=== PATIENT | female | born 1985 | race Two or more races ===

== ENCOUNTER 2025-04-09 12:23 | Emergency (ER) | payer OTHER, SELFPAY ==
--- OUTSIDE RECORDS SUMMARY | 2025-04-04 17:29 | XMS_ITS | Encounter Summary ---
Author Organization [facility] Address [address] [place] [id number] Phone Care Team Providers [employer] Name Role Phone Marek Siddiqui MD Primary Care Provi brenden Reason for Visit * Reason Comments Vaginal Bleeding Encounter Details Date Type Department Care Team (Late st Contact Info) Description 04/04/2025 5:29 PM EDT - 04/04/2025 10:01 PM EDT Emergency [facility] Emergency Dept [address] [place] [place] [address] Michael Hughes MD [address] [place] [id number] Vaginal bleeding in (Primary Dx); Subchorionic hematoma; Elevated blood pressure affecting in first trimester, antepartum Discharge Disposition: Home or Self Care Social History Tobacco Use Types Packs/Day Years Used Date Smoking Tobacco: Never Smokeless Tobacco: Never Tobacco Cessation:Counseling Given: Not Answered Alcohol Use Standard Drinks/Week Comments Never 0 (1 standard drink = 0.6 oz pur e alcohol) AUDIT-C Answer Date Recorded Q1: How often do you have a drink containing alcohol? Never 04/04/2025 Q2: How many drinks containi ng alcohol do you have on a typical day when you are drinking? Patient does not drink Q3: How often do you have si x or more drinks on one occasion? Never 04/04/2025 Estimated Date of Delivery Comme nts Yes 10/07/2025 Sex and Gender Information Value Date Recorded Sex Assigned at Female 04/04/2025 6:02 PM EDT Legal Sex Female 9:59 AM EST Gender Identity Not on file Sexual Orientation Not on file documented as of this encounter Last Filed Vital Signs Vital Sign Reading Time Taken Comments Blood Pressure 140/74 04/04/2025 8:18 PM EDT Pulse 88 04/04/2025 8:18 PM EDT Temperature 36.7 C (98 F) 04/04/2025 8:18 PM EDT Respiratory Rate 18 04/04/2025 8:18 PM EDT Oxygen Saturation 98% 04/04/2025 8:18 PM EDT Inhaled Oxygen Concentration - - Weight 116.1 kg (255 lb 14.4 oz) 04/04/2025 5:42 PM EDT Height 162.6 cm (5' 4 ) 04/04/2025 5:42 PM EDT Body Mass Index 43.93 04/04/2025 5:42 PM EDT documented in this encounter Functional Status * AUDIT-C Score Answer Date of Assessment Author 0 04/04/2025 5:46 PM EDT Brock Drake RN * Question Answer Date of Assessment Author Q1: How often do you have a drink containing alcohol? Never 04/04/2025 5:46 PM EDT Paulette Drake RN Q2: How many drinks containing alcohol do you have on a typical day when you are drinking? Patient does not drink 04/04/2025 5:46 PM EDT Paulette Drake RN Q3: How often do you have six or more drinks on one occasion? Never 04/04/2025 5:46 PM EDT Paulette Drake RN documented as of this encounter Discharge Instructions * Discharge Instructions* Gladys Sherman PA-C - 04/04/2025 9:46 PM EDT Your US findings today reveal: There is an intrauterine gestation with BPD of 2.36 cm which corresponds 14 weeks 0 days. cardiac activity is present 169 BPM. The placenta is posterior. There is normal amniotic fluid volume. Tiny subchorionic fluid collection. There is a small amount of fluid in the cervix. Cervix measures 3.3 cm and is closed. Neither ovary identified. Please follow-up with your CLAIMS ADJUSTER as scheduled tomorrow morning regarding your vaginal bleeding as well as elevated blood pressure. Please seek immediate medical attention if you experience any worsening vaginal bleeding, abdominal pain, or other concerning related symptoms. * Attachments The following attachments cannot be sent through Care Everywhere. * : High Blood Pressure (MALAY) documented in this encounter Medications at Time of Discharge aspirin (KERON CHEWABLE) 81 mg Tablet, Chewable Take 81 mg by mouth in the morning. magnesium gluconate (MAGONATE) 27 mg (500 mg) Tablet Take 1 Tablet by mouth in the morning. metFORMIN (GLUCOPHAGE) 1,000 mg tabletIndication s:polycystic ovarian syndrome Take 1,000 mg by mouth in the morning and 1,000 mg in the evening. Take with meals. For: polycystic ovarian syndrome, a disease with cysts in the ovaries. vit-iron fumarate-fa (NEELAM ) 28 mg iron- 800 mcg Tablet Take 1 Tablet by mouth in the morning. documented as of this encounter ED Notes * Gladys Sherman PA-C - 04/04/2025 10:01 PM EDT HISTORY OF PRESENT ILLNESS Jovanna Pearson, a 39 y.o. female presents to the ED with a Chief Complaint of Vaginal Bleeding Subjective Patient is a 39-year-old female with past medical history of PCOS who presents the emergency department today with vaginal bleeding in . Patient is approximately 13 weeks 3 days . She had abdominal ultrasound performed at her OB earlier today that was reassuring. She follows with [facility]'s health in [place]. Denies any transvaginal ultrasound or speculum exam. Approximately 2 hours following her appointment, she noticed vaginal bleeding. Patient has noted spotting throughout her but states this is more than usual. Denies passing any clots. Denies any associated abdominal pain. Denies any urinary symptoms to include dysuria, hematuria, flank pain. Denies any abnormal vaginal discharge, concern for STDs. Patient has otherwise been in her normal state of health. There are no further complaints at this time. PAST MEDICAL HISTORY REVIEWED MEDICAL Patient has a past medical history of Ovarian cyst. SURGICAL Patient has a past surgical history that includes pt denies relevant surgical history. FAMILY Patient's family history is not on file. SOCIAL reports that she has never smoked. She has never used smokeless tobacco. She reports that she does not drink alcohol and does not use drugs. PROBLEM LIST Patient does not have a problem list on file. ALLERGIES Patient has no known allergies. HOME MEDICATIONS Patient's Home Meds Medication Sig aspirin (KERON CHEWABLE) 81 mg Tablet, Chewable Take 81 mg by mouth in the morning. magnesium gluconate (MAGONATE) 27 mg (500 mg) Tablet Take 1 Tablet by mouth in the morning. metFORMIN (GLUCOPHAGE) 1,000 mg tablet Take 1,000 mg by mouth in the morning and 1,000 mg in the evening. Take with meals. For: polycystic ovarian syndrome, a disease with cysts in the ovaries. vit-iron fumarate-fa (NEELAM ) 28 mg iron- 800 mcg Tablet Take 1 Tablet by mouth in the morning. REVIEW OF SYSTEMS Review of Systems Constitutional: Negative for chills and fever. Respiratory: Negative for cough and shortness of breath. Cardiovascular: Negative for chest pain. Gastrointestinal: Negative for abdominal pain, diarrhea, nausea and vomiting. Genitourinary: Positive for vaginal bleeding. Negative for dysuria. Musculoskeletal: Negative for back pain and neck pain. Neurological: Negative for headaches. Psychiatric/Behavioral: Negative for suicidal ideas. Objective PHYSICAL EXAM INITIAL VS BP: 149/78 (04/04/251741), Pulse: 96 (04/04/251741), Resp: 18 (04/04/251741), Temp: 98.2 ??F (04/04/251741), Temp src: Oral (04/04/251741), SpO2: 100 % (04/04/251741), Height: 5' 4 (162.6 cm) (04/04/251741), Weight: 116.1 kg (255 lb 14.4 oz) (04/04/251741), BMI (Calculated): 43.9 () No LMP recorded. Patient is . Physical Exam Constitutional: General: She is awake. She is not in acute distress. Appearance: Normal appearance. She is well-developed. She is obese. She is not ill-appearing or toxic-appearing. Comments: Patient is resting comfortably no acute distress. HENT: Head: Normocephalic and atraumatic. Right Ear: Tympanic membrane normal. Cardiovascular: Rate and Rhythm: Normal rate and regular rhythm. Pulses: Normal pulses. Heart sounds: Normal heart sounds. Pulmonary: Effort: Pulmonary effort is normal. Breath sounds: Normal breath sounds. No wheezing, rhonchi or rales. Abdominal: General: Abdomen is flat. Bowel sounds are normal. There is no distension. Palpations: Abdomen is soft. Tenderness: There is no abdominal tenderness. There is no right CVA tenderness, left CVA tenderness, guarding or rebound. Comments: Abdomen is soft, nondistended, nontender. No rebound, guarding, rigidity. Musculoskeletal: Cervical back: Normal range of motion and neck supple. Skin: General: Skin is warm and dry. Capillary Refill: Capillary refill takes less than 2 seconds. Neurological: General: No focal deficit present. Mental Status: She is alert and oriented to person, place, and time. MEDICAL DECISION MAKING AND PLAN OF CARE Medical Decision Making Patient is a 39-year-old female with past medical history of PCOS who presents the emergency department today with vaginal bleeding in . Initial vital signs reveal elevated blood pressure. Patient is asymptomatic at this time. She denies a history of hypertension. Suspect this may be in setting of anxiety related to vaginal bleeding in . Will monitor closely. On exam, there is no abdominal tenderness to palpation. No CVA tenderness bilaterally. Exam is otherwise unremarkable. Will obtain basic labs, urinalysis, hCG quant and ultrasound imaging. All labs and imaging were personally reviewed and interpreted by myself: CBC without leukocytosis to suggest infection CMP without electrolyte derangements or metabolic abnormalities Urinalysis with hematuria hCG quant 89, 785 which is consistent with gestational age. Patient is type a positive. RhoGAM is not warranted at this time. Ultrasound is reassuring and reveals a single IUP measuring 14 weeks 0 days with appropriate cardiac activity, 169 bpm. There is a tiny subchorionic fluid collection with small amount of fluid in the closed cervix suspect this is consistent with subchorionic hematoma. On reevaluation, patient is resting comfortably in no acute distress. She states the bleeding has eased off at this time. Blood pressure remains slightly elevated but is downtrending in the emergencydepartment today. Discussed importance of close OB follow-up for which the patient has an appointment scheduled for tomorrow morning. She will follow-up regarding ultrasound findings in the emergencydepartment today as well as elevated blood pressure. Strict return precautions were given if patient is to experience any worsening vaginal bleeding, associated abdominal pain, or other concerning related symptoms. Patient is safe and appropriate for discharge at this time. She is amenable with plan and expresses understanding. All questions were answered. Please note that portions of this document were created using [employer]or[employer] fence erector software. Effort has been made to ensure the accuracy of the chiller tender. Any obvious errors or omissions should be clarified with the author of this document. Problems Addressed: Elevated blood pressure affecting in first trimester, antepartum: complicated acute illness or injury Subchorionic hematoma: complicated acute illness or injury Vaginal bleeding in : complicated acute illness or injury Amount and/or Complexity of Data Reviewed Labs: ordered. Radiology: ordered. DIAGNOSTICS LAB Labs Reviewed COMPREHENSIVE METABOLIC PANEL - Abnormal Result Value Sodium 135 Potassium 4.2 Chloride 102 CO2 22 BUN 8 Glucose 104 (*) Creatinine 0.7 BUN/Creatinine Ratio 11.4 Anion Gap 11 Osmolality, Calculated 269 (*) Total Protein 6.7 Albumin 4.0 Globulin (Calc) 2.7 Albumin/Globulin Ratio 1.5 Bilirubin Total <0.2 (*) Alkaline Phosphatase 64 AST 15 ALT 17 Calcium 9.2 eGFR >90.0 URINALYSIS WITH MICROSCOPIC - Abnormal Color, UA Light Red (*) Clarity UA Clear Specific Nubieber, UA 1.005 Leukocyte Esterase, UA Negative Nitrite, UA Negative pH, UA 5.5 Protein, UA Negative Glucose, UA Negative Ketones, UA Negative Urobilinogen, UA Negative Bilirubin, UA Negative Blood, UA 3+ (*) WBC Urine 2 Squamous Epithelials 1 (*) Bacteria, UA Few (*) RBC, UA 90 (*) HCG QUANTITATIVE, BLOOD - Abnormal HCG QUANT, BLOOD 89,785.0 (*) Narrative: Interpretation Non- females: <5.0 Males: <5.0 Female hCG mIU/mL Weeks of Gestation (LMP) 5 - 100 4 Weeks 200 - 3,000 5 Weeks 10,000 - 80,000 6 Weeks 90,000 - 500,000 7-14 Weeks 5,000 - 80,000 15-26 Weeks 3,000 - 15,000 27-40 Weeks Elevated hCG levels may also be found in certain benign and malignant conditions other than . Reevaluation of hCG levels at 2 day intervals may be indicated if appears unlikely. CBC WITH AUTO DIFFERENTIAL - Abnormal WBC 9.71 RBC 4.53 Hemoglobin 12.1 Hematocrit 36.5 MCV 80.6 MCH 26.7 (*) MCHC 33.2 (*) RDW SD 49.9 (*) RDW 17.1 (*) Platelets 189 MPV 10.6 Neutrophils % Auto 69 Lymphocytes % Auto 20 Monocytes % Auto 9 Eosinophils % Auto 1 Basophils % Auto 0 Immature Grans % 0.3 Neutrophils Absolute Auto 6.71 Lymphocytes Absolute Auto 1.95 Monocytes Absolute Auto 0.84 (*) Eosinophils Absolute Auto 0.14 Basophils Absolute Auto 0.04 Absolute Immature Grans 0.03 CBC WITH DIFFERENTIAL Narrative: The following orders were created for panel order CBC with Differential. Procedure Abnormality Status --------- ------ CBC with Auto Differential[[id number]] Abnormal Final result Please view results for these tests on the individual orders. ABO AND RH TYPE ABO/RH Type A Positive Narrative: Performing Organization Information: CRMHLAB : [facility] - [address] [address] Director: CARLIN REYES RADIOLOGY US OB <14 WKS SINGLE GESTATION W TV Reason for Exam: vaginal bleed in early Radiologist Impression 1. Johnson intrauterine gestation at 14 weeks 0 days. By BPD,. cardiac activity is present. 2. Tiny subchorionic fluid collection. There is small amount of fluid in the closed cervix. PROCEDURES Procedures REEVALUATION DISCHARGE: The patient has been re-examined and is ready to be discharged. All diagnostic results have been reviewed and discussed with the patient. Care plan has been outlined and patient understands all current diagnoses, results and treatment plans. There are no new complaints, changes, or physical findings at this time. All questions have been addressed. All medications were reviewed with the patient. Pt vitals are stable. Patient and or family was given a list of signs and symptoms that if presented are reasons to return to the emergency department. No additional questions at discharge. Please refer to the AVS for further discharge/educational/follow up information provided to the patient. The ptis being discharged in stable condition. CASE DISCUSSED MEDICATIONS Medications - No data to display Discharge Medication List as of 04/04/2025 9:54 PM CONTINUE these medications which have NOT CHANGED Details aspirin (KERON CHEWABLE) 81 mg Tablet, Chewable Take 81 mg by mouth in the morning. magnesium gluconate (MAGONATE) 27 mg (500 mg) Tablet Take 1 Tablet by mouth in the morning. metFORMIN (GLUCOPHAGE) 1,000 mg tablet Take 1,000 mg by mouth in the morning and 1,000 mg in the evening. Take with meals. For: polycystic ovarian syndrome, a disease with cysts in the ovaries. vit-iron fumarate-fa (NEELAM ) 28 mg iron- 800 mcg Tablet Take 1 Tablet by mouth in the morning. LAST VITAL SIGNS Vitals: 04/04/25174104/04/252017 BP: 149/78 140/74 BP Location: right arm left arm Patient Position: Supine Sitting Pulse: 96 88 Resp: 18 18 Temp: 98.2 ??F 98 ??F TempSrc: Oral Oral SpO2: 100% 98% Weight: 116.1 kg (255 lb 14.4 oz) Height: 5' 4 (1.626 m) CLINICAL IMPRESSION Final diagnoses: [O46.90] Vaginal bleeding in (Primary) [O41.8X90, O46.8X9] Subchorionic hematoma [O16.1] Elevated blood pressure affecting in first trimester, antepartum DISPOSITION, EDUCATION AND MEDICATION RECONCILIATION Medications reconciled. See after visit summary for patient education on discharged patients. Cosigned by Michael Hughes MD at 04/05/2025 3:18 AM EDT * Jen Schaefer RN - 04/04/2025 8:32 PM EDT Lab called to notify this RN of a correction to the color on the U/A. Color being corrected to light red from light yellow. * Jen Schaefer RN - 04/04/2025 8:01 PM EDT This RN went to pts room to obtain VS & pain re-assessment; pt still in U/S. * Jen Schaefer RN - 04/04/2025 7:56 PM EDT Pt in U/S at time pain re-assessment due. To be completed when pt returns to room from U/S. * Paulette Drake RN - 04/04/2025 5:43 PM EDT Stated went to the OB and had abdominal US today with a normal US with HR; denies any vaginal examine at todays visit; stated that she has had some heavier than normal bleeding that started about a hour ago no abdominal cramping or back pain; patient has panty liner present with some dark bleeding noted. documented in this encounter Plan of Treatment Not on file documented as of this encounter Procedures Procedure Name Priority Date/Time Associated Diagnosis Comments US OB <14 WKS SINGLE GESTATION W TV STAT 04/04/2025 8:26 PM EDT URINALYSIS WITH MICROSCOPIC STAT 04/04/2025 7:02 PM EDT CBC WITH AUTO DIFFERENTIAL STAT 04/04/2025 6:04 PM EDT ABO AND RH TYPE STAT 04/04/2025 6:04 PM EDT CBC WITH DIFFERENTIAL STAT 04/04/2025 6:04 PM EDT HCG QUANTITATIVE, BLOOD ROUTINE 04/04/2025 6:04 PM EDT COMPREHENSIVE METABOLIC PANEL STAT 04/04/2025 6:04 PM EDT documented in this encounter Results * US OB <14 WKS SINGLE GESTATION W TV Reason for Exam: vaginal bleed in early (04/04/2025 8:26 PM EDT) Anatomical Region Laterality Modality Pelvis Ultrasound 04/04/2025 8:46 PM EDT Impressions 04/04/2025 8:50 PM EDT 1. Johnson intrauterine gestation at 14 weeks 0 days. By BPD,. cardiac activity is present. 2. Tiny subchorionic fluid collection. There is small amount of fluid in the closed cervix. Narrative 04/04/2025 8:50 PM EDT US OB <14 WKS SINGLE GESTATION W TV HISTORY: vaginal bleed in early . COMPARISON: None. TECHNIQUE: Sonographic images of the pelvis were obtained transabdominally and endovaginally by a district fire management officer. Color and spectral Doppler of the ovaries was performed. FINDINGS: There is no intrauterine gestation with BPD of 2.36 cm which corresponds 14 weeks 0 days.. cardiac activity is present 169 BPM. The placenta is posterior. There is normal amniotic fluid volume. Tiny subchorionic fluid collection. There is a small amount of fluid in the cervix. Cervix measures 3.3 cm and is closed.. Neither ovary identified. Procedure Note Bola Gupta MD - 04/04/2025 US OB <14 WKS SINGLE GESTATION W TV HISTORY: vaginal bleed in early . COMPARISON: None. TECHNIQUE: Sonographic images of the pelvis were obtainedtransabdominally and endovaginally by a district fire management officer. Color and spectral Doppler of the ovaries was performed. FINDINGS: There is no intrauterine gestation with BPD of 2.36 cm whichcorresponds 14 weeks 0 days.. cardiac activity is present 169 BPM. The placenta isposterior. There is normal amniotic fluid volume. Tiny subchorionic fluid collection. There is a small amount of fluid in the cervix. Cervix measures 3.3 cm andis closed.. Neither ovary identified. IMPRESSION 1. Johnson intrauterine gestation at 14 weeks 0 days. By BPD,. Fetalcardiac activity is present. 2. Tiny subchorionic fluid collection. There is small amount of fluid inthe closed cervix. us Gladys Sherman PA-C US ORDERABLES Final Resu lt * (ABNORMAL) Urinalysis with Microscopic - Clean Catch (04/04/2025 7:02 PM EDT) Color, UA Light Red(A) Light Yellow, Yellow, Dark Yellow 04/04/2025 8:32 PM EDT [facility] Comment:This is a corrected result. Previous result was Light Yellow on 04/04/2025 at 1922 EDT Clarity UA Clear Clear 04/04/2025 8:32 PM EDT [facility] Specific Nubieber, UA 1.005 1.005 - 1.030 04/04/2025 8:32 PM EDT [facility] Leukocyte Esterase, UA Negative Negative Mohan/uL 04/04/2025 8:32 PM EDT [facility] Nitrite, UA Negative Negative 04/04/2025 8:32 PM EDT [facility] pH, UA 5.5 5.0 - 9.0 04/04/2025 8:32 PM EDT [facility] Protein, UA Negative Negative mg/dL 04/04/2025 8:32 PM EDT [facility] Glucose, UA Negative Negative, 500 mg/dL mg/dL 04/04/2025 8:32 PM EDT [facility] Ketones, UA Negative Negative mg/dL 04/04/2025 8:32 PM EDT [facility] Urobilinogen, UA Negative Negative mg/dL 04/04/2025 8:32 PM EDT [facility] Bilirubin, UA Negative Negative, >10.0 mg/dL mg/dL 04/04/2025 8:32 PM EDT [facility] Blood, UA 3+(A) Negative 04/04/2025 8:32 PM EDT [facility] WBC Urine 2 0 - 5 /HPF 04/04/2025 8:32 PM EDT [facility] Squamous Epithelials 1(H) None /HPF 04/04/2025 8:32 PM EDT [facility] Bacteria, UA Few(A) (none) 04/04/2025 8:32 PM EDT [facility] RBC, UA 90(H) 0 - 2 /HPF 04/04/2025 8:32 PM EDT [facility] Urine URINE SPECIMEN OBTAINED BY CLEAN CATCH PROCEDURE / Unknown Collection / Unknown 04/04/2025 7:02 PM EDT 04/04/2025 7:06 PM EDT Gladys Sherman PA-C URINE ORDERABLES Edited Re sult - Final [facility] CLIA [id number] [facility] [place] [address] * (ABNORMAL) CBC with Auto Differential (04/04/2025 6:04 PM EDT) WBC 9.71 3.60 - 11.10 x10E3/uL 04/04/2025 6:12 PM EDT [facility] RBC 4.53 3.69 - 4.88 x10E6/uL 04/04/2025 6:12 PM EDT [facility] Hemoglobin 12.1 11.4 - 14.4 g/dL 04/04/2025 6:12 PM EDT [facility] Hematocrit 36.5 33.3 - 41.4 % 04/04/2025 6:12 PM EDT [facility] MCV 80.6 79.3 - 94.8 fL 04/04/2025 6:12 PM EDT [facility] MCH 26.7(L) 26.8 - 33.2 pg 04/04/2025 6:12 PM EDT [facility] MCHC 33.2(L) 33.5 - 35.5 g/dL 04/04/2025 6:12 PM EDT [facility] RDW SD 49.9(H) 36.4 - 46.3 fL 04/04/2025 6:12 PM EDT [facility] RDW 17.1(H) 12.0 - 15.1 % 04/04/2025 6:12 PM EDT [facility] Platelets 189 165 - 353 x10E3/uL 04/04/2025 6:12 PM EDT [facility] MPV 10.6 7.5 - 10.7 fL 04/04/2025 6:12 PM EDT [facility] Neutrophils % Auto 69 43 - 72 % 04/04/2025 6:12 PM EDT [facility] Lymphocytes % Auto 20 17 - 44 % 04/04/2025 6:12 PM EDT [facility] Monocytes % Auto 9 0 - 12 % 04/04/20 6:12 PM EDT [facility] Eosinophils % Auto 1 0 - 8 % 04/04/2025 6:12 PM EDT [facility] Basophils % Auto 0 0 - 1 % 04/04/20 6:12 PM EDT [facility] Immature Grans % 0.3 0.0 - 0.4 % 04/04/2025 6:12 PM EDT [facility] Neutrophils Absolute Auto 6.71 1.90 - 7.20 x10E3/uL 04/04/2025 6:12 PM EDT [facility] Lymphocytes Absolute Auto 1.95 1.10 - 2.70 x10E3/uL 04/04/2025 6:12 PM EDT [facility] Monocytes Absolute Auto 0.84(H) 0.00 - 0.80 x10E3/uL 04/04/2025 6:12 PM EDT [facility] Eosinophils Absolute Auto 0.14 0.00 - 0.50 x10E3/uL 04/04/2025 6:12 PM EDT [facility] Basophils Absolute Auto 0.04 0.00 - 0.10 x10E3/uL 04/04/2025 6:12 PM EDT [facility] Absolute Immature Grans 0.03 0.00 - 0.03 x10E3/uL 04/04/2025 6:12 PM EDT [facility] Blood VENOUS BLOOD SPECIMEN / Unknown Venipuncture / Unknown 04/04/2025 6:04 PM EDT 04/04/2025 6:[address] [facility] HEMATOLOGY ORDERABLES Florina l Result [facility] [place] [id number] [address] [place] [id number] * ABO and Rh Type (04/04/2025 6:04 PM EDT) ABO/RH Type A Positive 04/04/2025 6:31 PM EDT [facility] Blood VENOUS BLOOD SPECIMEN / Unknown Venipuncture / Unknown 04/04/2025 6:04 PM EDT 04/04/2025 6:08 PM EDT Narrative [facility] BLOOD BANK - 04/04/2025 6:31 PM EDT Performing Organization Information: CRMHLAB : [facility] - [address] [address] Director: CARLIN REYES [facility] BLOOD BANK ORDERABLES Florina l Result [facility]LOOD B[facility] CLIA [id number] [address] [place] [address], [place] [phone] [facility] CLIA [id number] [address] [place] [id number] * (ABNORMAL) HCG Quant, Blood (04/04/2025 6:04 PM EDT) HCG QUANT, BLOOD 89,785.0(H ) <5.0 mIU/mL 04/04/2025 6:46 PM EDT [facility] Blood VENOUS BLOOD SPECIMEN / Unknown Venipuncture / Unknown 04/04/2025 6:04 PM EDT 04/04/2025 6:08 PM EDT [facility] - 04/04/2025 6:46 PM EDT Interpretation Non- females: <5.0 Males: <5.0 Female hCG mIU/mL Weeks of Gestation (LMP) 5 - 100 4 Weeks 200 - 3,000 5 Weeks 10,000 - 80,000 6 Weeks 90,000 - 500,000 7-14 Weeks 5,000 - 80,000 15-26 Weeks 3,000 - 15,000 27-40 Weeks Elevated hCG levels may also be found in certain benign and malignant conditions other than . Reevaluation of hCG levels at 2 day intervals may be indicated if appears unlikely. us Gladys Sherman PA-C CHEMISTRY ORDERABLES Final Result [facility] [id number] [facility] [place] [address] * (ABNORMAL) Comprehensive Metabolic Panel (04/04/2025 6:04 PM EDT) [facility] Sodium 135 134 - 145 mmol/L 04/04/2025 6:27 PM EDT [facility] Potassium 4.2 3.5 - 5.3 mmol/L 04/04/2025 6:27 PM EDT [facility] Chloride 102 95 - 110 mmol/L 04/04/2025 6:27 PM EDT [facility] CO2 22 21 - 31 mmol/L 04/04/2025 6:27 PM EDT [facility] BUN 8 8 - 21 mg/dL 04/04/2025 6:27 PM EDT [facility] Glucose 104(H) 70 - 100 mg/dL 04/04/2025 6:27 PM EDT [facility] Creatinine 0.7 0.5 - 1.5 mg/dL 04/04/2025 6:27 PM EDT [facility] BUN/Creatinine Ratio 11.4 10.0 - 24.0 04/04/2025 6:27 PM EDT [facility] Anion Gap 11 6 - 20 mmol/L 04/04/2025 6:27 PM EDT [facility] Osmolality, Calculated 269(L) 270 - 290 mOsm/kg 04/04/2025 6:27 PM EDT [facility] Total Protein 6.7 5.5 - 8 g/dL 04/04/2025 6:27 PM T [facility] Albumin 4.0 3.2 - 5 g/dL 04/04/2025 6:27 PM EDT [facility] Globulin (Calc) 2.7 2.3 - 3.7 g/dL 04/04/2025 6:27 PM EDT [facility] Albumin/Globulin Ratio 1.5 1.2 - 1.8 04/04/2025 6:27 PM EDT [facility] Bilirubin Total <0.2(L) 0.2 - 1.2 mg/dL 04/04/2025 6:27 PM EDT [facility] Alkaline Phosphatase 64 42 - 121 U/L 04/04/2025 6:27 PM EDT [facility] AST 15 6 - 38 U/L 04/04/2025 6:27 PM EDT [facility] ALT 17 10 - 54 U/L 04/04/2025 6:27 PM EDT [facility] Calcium 9.2 8.4 - 10.5 mg/dL 04/04/2025 6:27 PM EDT [facility] eGFR >90.0 >60.0 ml/min/1. 73M2 04/04/2025 6:27 PM EDT [facility] Comment:Calculation based on the Chronic Kidney Disease Epidemiology Collaboration (CKD-EPI) equation refit without adjustment for race Blood VENOUS BLOOD SPECIMEN / Unknown Venipuncture / Unknown 04/04/2025 6:04 PM EDT 04/04/2025 6:08 PM EDT Gladys Sherman PA-C CHEMISTRY ORDERABLES Final Result [facility] CLIA [id number] [facility] [place] [address] documented in this encounter Visit Diagnoses Diagnosis Vaginal bleeding in - Primary Unspecified antepartum hemorrhage, unspecified as to episode of care Subchorionic hematoma Other specified and placental problems affecting management of mother, unspecified as to episode of care Elevated blood pressure affecting in first trimester, antepartum documented in this encounter Care Teams [employer] Relationship Specialty Start [place] [id number] [facility] [address] [place] [address] PCP - General Family Practice 04/04/25 documented as of this encounter
[2025-04-09 12:27] VITALS: BP 162/91; PULSE 88; TEMP 36.8; O2SAT 98; BMI 43.6
--- NOTE | 2025-04-09 12:49 | ED.GENADUL1 ---
HPI HPI - General Adult General Chief complaint: Vaginal Bleeding Stated complaint: 14 WEEKS PREGN SOME BLEEDDING Time Seen by Provider: 04/09/25 12:28 Source: family Mode of arrival: walk-in Limitations: no limitations History of Present Illness HPI narrative: The patient is a 39-year-old female who presents to the emergency department today for evaluation concerns for vaginal bleeding. She endorses she is approximately 14 weeks with MEGAN 10/07/2025 (G1, P0). She mentions over the past week she has had some intermittent spotting and is traveling here from [place]. She mentioned she was seen in a different emergency department [id number] at which time she reports she had an ultrasound that showed subchorionic hemorrhage. She reports today she has continued to have some spotting however did have an episode where there was some heavier vaginal bleeding. She denies any dizziness or syncope. No chest pain or shortness of breath. No abdominal pain or nausea/vomiting. No urinary symptoms or back/flank pain. She denies any significant medical or surgical history other than PCOS and currently taking metformin. Related Data Allergies Allergy/AdvReac Type Severity Reaction Status Date / Time No Known Drug Allergies Allergy Verified 04/09/25 12:33 Review of Systems ROS Status of ROS 10 or more systems reviewed and unremarkable except as noted in history and below PFSH PFSH Social History Little interest or pleasure in doing things: not at all Feeling down, depressed, or hopeless: not at all Exam Narrative Exam Narrative: Constituational: Awake/ alert, no apparent distress, well hydrated, + obese HENMT: normocephalic, external ears normal, moist oral mucous membranes and oropharynx normal Eyes: EOMI and conjunctivae normal Neck: ROM intact Chest: inspection of chest normal Respiratory: Normal respiratory effort, clear to auscultation bilaterally Cardio: regular rate and regular rhythm GI: soft to palpation and non-tender : Normal external exam, cervical os closed, +scant sanguinous drainage in vaginal vault, no CMT or adnexal tenderness Back: nontender MSK: ROM intact, +NVI Skin: no rashes or petechiae Neuro: no focal deficits Psych: mental status grossly normal Constitutional Vital Signs, click to edit/add: Last Vital Signs Temp 98.2 F 04/09/25 12:27 Pulse 88 04/09/25 12:27 Resp 20 04/09/25 12:27 BP 162/91 H 04/09/25 12:27 Pulse Ox 98 04/09/25 12:27 O2 Del Method Room Air 04/09/25 12:27 Course Vital Signs Vital signs: Vital Signs Temperature 98.2 F 04/09/25 12:27 Pulse Rate 88 04/09/25 12:27 Respiratory Rate 20 04/09/25 12:27 Blood Pressure 162/91 H 04/09/25 12:27 Pulse Oximetry 98 04/09/25 12:27 Oxygen Delivery Method Room Air 04/09/25 12:27 Temperature 98.2 F 04/09/25 12:27 Pulse Rate 88 04/09/25 12:27 Respiratory Rate 20 04/09/25 12:27 Blood Pressure 162/91 H 04/09/25 12:27 Pulse Oximetry 98 04/09/25 12:27 Oxygen Delivery Method Room Air 04/09/25 12:27 Medical Decision Making MDM Narrative Medical decision making narrative: The patient is a well-appearing 39-year-old female who presented to the emergency department today for evaluation concerns for vaginal bleeding in early second trimester . Initial examination vital signs overall stable noted scant vaginal bleeding. Otherwise no acute abdominal findings on exam. Labs stable. Rh+, no indication for RhoGAM. OB ultrasound is pending radiology interpretation however there is delay over read due to being a weekend. Interpretation of ultrasound is stable per calibration laboratory technician with normal heart tones and had been discussed with the ER attending provider Dr. Villa. historically patient had endorsed some ongoing vaginal bleeding/spotting throughout the week and had been seen in an ER in a different state as she is traveling through the area and reportedly had a subchorionic hemorrhage. She mentions she has an appointment with her FAMILY AND CONSUMER SCIENCE PROFESSOR in [place] on 04/29. Discussed recommendations with the patient for supportive care of possible threatened miscarriage. Vaginal precautions discussed. Reiterated close follow-up with her FAMILY AND CONSUMER SCIENCE PROFESSOR for reevaluation. Discussed signs and symptoms of any worsening condition and when to consider reevaluation by the emergency department. Patient verbalized an understanding of this and is agreeable with the plan to be discharged home. Medical Records Medical records reviewed: Yes I reviewed the patient's medical records Lab Data Lab results reviewed: Yes I reviewed the patient's lab results Labs: Lab Results 06/07/25 06/07/25 Range/Units 12:29 12:45 WBC 9.0 (4.0-11.0) 10^3/uL RBC 4.38 (4.20-5.40) 10^6/uL Hgb 12.1 (12.0-16.0) g/dL Hct 35.3 L (36.0-48.0) % MCV 80.6 L (81.0-99.0) fL MCH 27.6 (26.7-34.0) pg MCHC 34.3 (29.9-35.2) g/dL RDW 16.9 H (11.0-15.0) % Plt Count 188 (150-450) 10^3/uL MPV 10.2 (9.5-13.5) fL Neut % (Auto) 76.7 H (43.0-75.0) % Lymph % (Auto) 14.8 L (20.5-60.0) % [place] % (Auto) 6.9 (1.7-12.0) % Eos % (Auto) 0.9 (0.9-7.0) % Baso % (Auto) 0.4 (0.2-2.0) % Neut # (Auto) 6.9 H (1.4-6.5) 10^3/uL Lymph # (Auto) 1.3 (1.2-3.8) 10^3/uL [place] # (Auto) 0.6 (0.3-0.8) 10^3/uL Eos # (Auto) 0.1 (0.0-0.7) 10^3/uL Baso # (Auto) 0.0 (0.0-0.1) 10^3/uL Abs Immat Gran (auto) 0.03 (0.00-0.03) 10^3/uL Imm/Tot Granulo (auto) 0.3 (0.0-0.5) % Sodium 139 (136-145) mmol/L Potassium 3.9 (3.5-5.1) mmol/L Chloride 102 (98-107) mmol/L Carbon Dioxide 25.2 (21.0-32.0) mmol/L Anion Gap 15.7 BUN 8.0 (7.0-18.0) mg/dL Creatinine 0.58 (0.55-1.02) mg/dL Est GFR ( Amer) >60 (>=60 mL/min/1.73m^2) Est GFR (Non-Af Amer) >60 (>=60 mL/min/1.73m^2) BUN/Creatinine Ratio 13.8 Glucose 104 (74-106) mg/dL Calcium 9.2 (8.5-10.1) mg/dL Total Bilirubin 0.2 (0.2-1.0) mg/dL AST 14 L (15-37) U/L ALT 25 (14-59) U/L Alkaline Phosphatase 63 (46-116) U/L Total Protein 6.7 (6.4-8.2) g/dL Albumin 3.2 L (3.4-5.0) g/dL Globulin 3.5 g/dL Albumin/Globulin Ratio 0.9 Urine Color Lt. yellow (YELLOW) Urine Clarity Sl cloudy (CLEAR) Urine pH 6.0 (5.0-9.0) Ur Specific Dorr 1.010 (1.005-1.025) Urine Protein Negative (NEG/TRACE) mg/dL Urine Glucose (UA) Negative (NEGATIVE) mg/dL Urine Ketones Negative (NEGATIVE) mg/dL Urine Occult Blood Large A (NEGATIVE) Urine Nitrite Negative (NEGATIVE) Urine Bilirubin Negative (NEGATIVE) Urine Urobilinogen 0.2 (0.2-1.0) EU/dL Ur Leukocyte Esterase Negative (NEGATIVE) Urine RBC 20-50 A (0-2) #/HPF Urine WBC 0-2 A (NONE SEEN) #/HPF Ur Squamous Epith Cells Few A (NONE/RARE) #/LPF Urine Crystals None seen (None Seen) #/HPF Urine Bacteria Moderate A (NONE SEEN) #/HPF Urine Casts None seen (NONE SEEN) #/LPF Urine Mucus Trace A (NONE SEEN) Ur Culture Indicated? Yes[place] [place] Type A Positive Imaging Data OB ultrasound: Attestation: I have reviewed the pertinent imaging results. (results normal per US tech and were discussed with ER attending provider Dr. Villa) Discharge Plan Discharge Chief Complaint: Vaginal Bleeding Clinical Impression: Threatened Patient Disposition: Home, Self-Care Print Language: Peruvian Instructions: Threatened Miscarriage (ED) Additional Instructions: Vaginal rest as discussed -> avoid vaginal intercourse, use of tampons, douching. You need close follow-up with your FAMILY AND CONSUMER SCIENCE PROFESSOR for reevaluation. Referrals: Physician,Non-Staff, MD [Primary Care Provider] - 1 week Discharge Date/Time: 04/09/25 16:12
--- OUTSIDE RECORDS SUMMARY | 2025-04-09 12:51 | XMS_ITS | Clinical Summary ---
Author Organization [facility] Address [address] [place] [address] Phone Care Team Providers Care Emotional Support Teacher Name Role Phone Marek Siddiqui MD Primary Care Provi brenden Allergies No known active allergies Medications metFORMIN (GLUCOPHAGE) 1,000 mg tabletIndicatio ns:polycystic ovarian syndrome Take 1,000 mg by mouth in the morning and 1,000 mg in the evening. Take with meals. For: polycystic ovarian syndrome, a disease with cysts in the ovaries. Active vit-iron fumarate-fa (NEELAM ) 28 mg iron- 800 mcg Tablet Take 1 Tablet by mouth in the morning. Active aspirin (KERON CHEWABLE) 81 mg Tablet, Chewable Take 81 mg by mouth in the morning. Active magnesium gluconate (MAGONATE) 27 mg (500 mg) Tablet Take 1 Tablet by mouth in the morning. Active Encounters Date Type Department Care Team Description 04/04/2025 5:29 PM EDT - 04/04/2025 10:01 PM EDT Emergency [facility] [place] [address] [place] [address] Michael Hughes MD Vaginal bleeding in (Primary Dx); Subchorionic hematoma; Elevated blood pressure affecting in first trimester, antepartum Discharge Disposition: Home or Self Care from Last 3 Months Immunizations Immunization Administration Dates Next Due SARS COV-2 Vaccine:COVID-19(Pfizer) 01/25/2021,0 01/04/2021 Social History Tobacco Use Types Packs/Day Years [...] on file Sexual Orientation Not on file Last Filed Vital Signs Vital Sign Reading [...] Mass Index 43.93 04/04/2025 5:42 PM EDT Plan of Treatment Health Maintenance Due Date Last Done Comments HEPATITIS C SCREENING 2004 CERVICAL CANCER SCREENING 2007 COVID-19 VACCINE (2023-12 5 season) 2024 10/03/2021, 01/25/2021, 01/04/2021 INFLUENZA VACCINE 06/03/2025 11/30/2024 RSV VACCINE: 60YRS+ OR (1 - Risk 1-dose series) 08/12/2025 PNEUMOCOCCAL VACCINE: < 50 Years Aged Out No longer eligible b ased on patient's age to complete this topic Procedures Procedure Name Priority Date/Time Associated Diagnosis Comments US OB <14 WKS SINGLE GESTATION W TV STAT 04/04/2025 8:26 PM EDT URINALYSIS WITH MICROSCOPIC STAT 04/04/2025 7:02 PM EDT ABO AND RH TYPE STAT 04/04/2025 6:04 PM EDT CBC WITH AUTO DIFFERENTIAL STAT 04/04/2025 6:04 PM EDT HCG QUANTITATIVE, BLOOD ROUTINE 04/04/2025 6:04 PM EDT COMPREHENSIVE METABOLIC PANEL STAT 04/04/2025 6:04 PM EDT CBC WITH DIFFERENTIAL STAT 04/04/2025 6:04 PM EDT from Last 3 Months Results * US OB <14 WKS SINGLE [...] were obtained transabdominally and endovaginally by a blocker hand. Color and spectral Doppler of the ovaries [...] pelvis were obtainedtransabdominally and endovaginally by a blocker hand. Color and spectral Doppler of the ovaries [...] Yellow, Dark Yellow 04/04/2025 8:32 PM EDT [facility] Comment:This is a corrected result. Previous result was Light Yellow on 04/04/2025 at 1922 EDT Clarity UA Clear Clear 04/04/2025 8:32 PM EDT [facility] Specific [place], UA 1.005 1.005 - 1.030 04/04/2025 8:32 PM EDT [facility] Leukocyte Esterase, UA Negative Negative Mohan/uL 04/04/2025 8:32 PM EDT [facility] Nitrite, UA Negative Negative 04/04/2025 8:32 PM EDT [facility] pH, UA 5.5 5.0 - 9.0 04/04/2025 8:32 PM EDT [facility] Protein, UA Negative Negative mg/dL 04/04/2025 8:32 PM EDT [facility] Glucose, UA Negative Negative, 500 mg/dL mg/dL 04/04/2025 8:32 PM EDT [facility] Ketones, UA Negative Negative mg/dL 04/04/2025 8:32 PM EDT [facility] Urobilinogen, UA Negative Negative mg/dL 04/04/2025 8:32 PM EDT [facility] Bilirubin, UA Negative Negative, >10.0 mg/dL mg/dL 04/04/2025 8:32 PM EDT [facility] Blood, UA 3+(A) Negative 04/04/2025 8:32 PM EDT [facility] WBC Urine 2 0 - 5 /HPF 04/04/2025 8:32 PM EDT [facility] Squamous Epithelials 1(H) None /HPF 04/04/2025 8:32 PM EDT [facility] Bacteria, UA Few(A) (none) 04/04/2025 8:32 PM EDT [facility] RBC, UA 90(H) 0 - 2 /HPF 04/04/2025 8:32 PM EDT [facility] Urine URINE SPECIMEN OBTAINED BY CLEAN CATCH PROCEDURE / Unknown Collection / Unknown 04/04/2025 7:02 PM EDT 04/04/2025 7:06 PM EDT Gladys Goffurch PA-C URINE ORDERABLES Edited Re sult - Final [facility] CLIA [id number] [address] [place] [address] * (ABNORMAL) CBC with Auto Differential (04/04/2025 6:04 PM EDT) WBC 9.71 3.60 - 11.10 x10E3/uL 04/04/2025 6:12 PM EDT [facility] RBC 4.53 3.69 - 4.88 x10E6/uL 04/04/2025 6:12 PM EDT [facility] Hemoglobin 12.1 11.4 - 14.4 g/dL 04/04/2025 6:12 PM EDT [facility] Hematocrit 36.5 33.3 - 41.4 % 04/04/2025 6:12 PM EDT [facility] MCV 80.6 79.3 - 94.8 fL 04/04/2025 6:12 PM EDT [facility] MCH 26.7(L) 26.8 - 33.2 pg 04/04/2025 6:12 PM EDT [facility] MCHC 33.2(L) 33.5 - 35.5 g/dL 04/04/2025 6:12 PM EDT [facility] RDW SD 49.9(H) 36.4 - 46.3 fL 04/04/2025 6:12 PM EDT [facility] RDW 17.1(H) 12.0 - 15.1 % 04/04/2025 6:12 PM EDT [facility] Platelets 189 165 - 353 x10E3/uL 04/04/2025 6:12 PM EDT [facility] MPV 10.6 7.5 - 10.7 fL 04/04/2025 6:12 PM EDT [facility] Neutrophils % Auto 69 43 - 72 % 04/04/2025 6:12 PM EDT [facility] Lymphocytes % Auto 20 17 - 44 % 04/04/2025 6:12 PM EDT [facility] Monocytes % Auto 9 0 - 12 % 04/04/20 6:12 PM EDT [facility] Eosinophils % Auto 1 0 - 8 % 04/04/2025 6:12 PM EDT [facility] Basophils % Auto 0 0 - 1 % 04/04/20 6:12 PM EDT [facility] Immature Grans % 0.3 0.0 - 0.4 % 04/04/2025 6:12 PM EDT [facility] Neutrophils Absolute Auto 6.71 1.90 - 7.20 x10E3/uL 04/04/2025 6:12 PM EDT [facility] Lymphocytes Absolute Auto 1.95 1.10 - 2.70 x10E3/uL 04/04/2025 6:12 PM EDT [facility] Monocytes Absolute Auto 0.84(H) 0.00 - 0.80 x10E3/uL 04/04/2025 6:12 PM EDT [facility] Eosinophils Absolute Auto 0.14 0.00 - 0.50 x10E3/uL 04/04/2025 6:12 PM EDT [facility] Basophils Absolute Auto 0.04 0.00 - 0.10 x10E3/uL 04/04/2025 6:12 PM EDT [facility] Absolute Immature Grans 0.03 0.00 - 0.03 x10E3/uL 04/04/2025 6:12 PM EDT [facility] Blood VENOUS BLOOD SPECIMEN / Unknown Venipuncture / Unknown 04/04/2025 6:04 PM EDT 04/04/2025 6:08 PM EDT Gladys Garrisonh SHIVAM HEMATOLOGY ORDERABLES Florina l Result [facility] CLIA [id number] [address] [place] [address] * ABO and Rh Type (04/04/2025 6:04 PM EDT) ABO/RH Type A Positive 04/04/2025 6:31 PM EDT [facility] Blood VENOUS BLOOD SPECIMEN / Unknown Venipuncture / Unknown 04/04/2025 6:04 PM EDT 04/04/2025 6:08 PM EDT Narrative [facility] BLOOD BANK - 04/04/2025 6:31 PM EDT Performing Organization Information: [facility] : [facility], [address] [place] [address] Director: CARLIN REYES Gladys Sherman PA-C BLOOD BANK ORDERABLES Florina l Result [facility] BLOOD BANK CLIA [id number] [address] [place] [address], [place] [phone] [facility] CLIA [id number] [address] [place] [address] * (ABNORMAL) HCG Quant, Blood (04/04/2025 6:04 PM EDT) HCG QUANT, BLOOD 89,785.0(H ) <5.0 mIU/mL 04/04/2025 6:46 PM EDT [facility] Blood VENOUS BLOOD SPECIMEN / Unknown Venipuncture / Unknown 04/04/2025 6:04 PM EDT 04/04/2025 6:08 PM EDT Narrative [facility] - 04/04/2025 6:46 PM EDT Interpretation Non- [...] intervals may be indicated if appears unlikely. Gladys Sherman PA-C CHEMISTRY ORDERABLES Final Result [facility] [id number] [address] [place] [address] * (ABNORMAL) Comprehensive Metabolic Panel (04/04/2025 6:04 PM EDT) Sodium 135 134 - 145 mmol/L 04/04/2025 6:27 PM EDT [facility] Potassium 4.2 3.5 - 5.3 mmol/L 04/04/2025 6:27 PM EDT [facility] Chloride 102 95 - 110 mmol/L 04/04/2025 6:27 PM EDT [facility] CO2 22 21 - 31 mmol/L 04/04/2025 6:27 PM EDT [facility] BUN 8 8 - 21 mg/dL 04/04/2025 6:27 PM EDT [facility] Glucose 104(H) 70 - 100 mg/dL 04/04/2025 6:27 PM EDT [facility] Creatinine 0.7 0.5 - 1.5 mg/dL 04/04/2025 6:27 PM EDT [facility] BUN/Creatinine Ratio 11.4 10.0 - 24.0 04/04/2025 6:27 PM EDT [facility] Anion Gap 11 6 - 20 mmol/L 04/04/2025 6:27 PM EDT [facility] Osmolality, Calculated 269(L) 270 - 290 mOsm/kg 04/04/2025 6:27 PM EDT [facility] Total Protein 6.7 5.5 - 8 g/dL 04/04/2025 6:27 PM EDT [facility] Albumin 4.0 3.2 - 5 g/dL 04/04/2025 6:27 PM EDT [facility] Globulin (Calc) 2.7 2.3 - 3.7 g/dL 04/04/2025 6:27 PM EDT [facility] Albumin/Globulin Ratio 1.5 1.2 - 1.8 04/04/2025 6:27 PM EDT [facility] Bilirubin Total <0.2(L) 0.2 - 1.2 mg/dL 04/04/2025 6:27 PM EDT [facility] Alkaline Phosphatase 64 42 - 121 U/L 04/04/2025 6:27 PM EDT [facility] AST 15 6 - 38 U/L 04/04/2025 6:27 PM EDT [facility] ALT 17 10 - 54 U/L 04/04/2025 6:27 PM EDT [facility] Calcium 9.2 8.4 - 10.5 mg/dL 04/04/2025 6:27 PM EDT [facility] eGFR >90.0 >60.0 ml/min/1. 73M2 04/04/2025 6:27 PM EDT [facility] Comment:Calculation based on the Chronic Kidney Disease Epidemiology Collaboration (CKD-EPI) equation refit without adjustment for race Blood VENOUS BLOOD SPECIMEN / Unknown Venipuncture / Unknown 04/04/2025 6:04 PM EDT 04/04/2025 6:08 PM EDT Gladys Sherman PA-C CHEMISTRY ORDERABLES Final Result [facility] [place] [facility] [id number] [address] [place] [address] from Last [address] [place] [facility] [facility] [employer] [place] [employer] Care Teams Emotional Support Teacher Relationship Specialty Start Date End Date Marek Siddiqui [place] [id number] [place] [address] PCP - General Family Practice 04/04/25
--- OUTSIDE RECORDS SUMMARY | 2025-04-09 12:52 | XMS_ITS | Clinical Summary ---
Author Organization [facility] Address [address] [place] [address] Care Team Providers Care Patient Services Manager Name Role Phone Marek Siddiqui MD Primary Care Provider Allergies No known active allergies Medications fish oil (SEA-OMEGA) 1000 mg CAPS Take one capsule (1,000 mg dose) by mouth daily. Active Coenzyme Q10 (COQ-10) 150 MG CAPS Active MV-Min-Fe Fum-FA-DHA (/FOLIC ACID+DHA PO) Active Lactobacillus-I nulin (CULTURELLE DIGESTIVE DAILY PO) Take by mouth. Active Ashwagandha 120 MG CAPS 10/20/2023 Active Berberine Chloride (BERBERINE HCI PO) Take 2 tablets by mouth daily. 07/04/2024 Active INOSITOL-D CHIRO-INOSITOL PO Take 4 tablets by mouth daily. 07/04/2024 Active cholecalciferol (D3-1000) 1,000 units (25 mcg) tablet Take five tablets (5,000 Units dose) by mouth daily. 11/26/2023 Active turmeric 500 mg CAPS capsule Take two capsules (1,000 mg dose) by mouth daily. 07/04/2024 Active magnesium gluconate 500 MG TABS Take one half tablet (250 mg dose) by mouth daily. 1tab qam, 2tabs qpm Active metFORMIN ER (GLUCOPHAGE-XR) 750 MG 24 hr tabletIndicatio ns:PCOS (polycystic ovarian syndrome) Take one tablet (750 mg dose) by mouth 1 (one) time each day with breakfast. 90 tablet 3 12/07/2024 Active Active Problems Problem Noted Date Diagnosed Date Insulin resistance 11/30/2024 Hepatic steatosis 12/23/2023 Dyslipidemia 12/02/2022 Resolved Problems Problem Noted Date Diagnosed Date Resolved Date LFT elevation 12/02/2022 11/30/2024 Overview (12/02/2022): Mildly elevated, will monitor next labs. Immunizations Immunization Administration Dates Next Due Influenza, MDCK, trivalent, PF (Flucelvax PF) Influenza, injectable, MDCK, preservative free, quadrivalent(FlucelvaxPF) 11/17/2023,11/29/2022 [facility] COVID-19 Monovalent Vaccine mRNA 10/03/2021 Tdap 11/29/2022 Family History Medical History Relation Name Comments Polycythemia Brother Diabetes Father Artur type 2 on insul in Hypertension Father Artur Hypertension Maternal Grandfather Granddad Stroke Maternal Grandfather Granddad Seizures Maternal Grandmother Arthritis Mother Yashira Depression Mother Yashira Hypertension Mother Yashira Cancer Paternal Aunt Ameena and Ángela COPD Paternal Grandfather Papa Diabetes Paternal Grandfather Papa Hearing loss Paternal Grandmother Grandma Hypertension Paternal Grandmother Grandma Cancer Paternal Uncle Chucho Relation Name Status Comments Brother Alive Father Artur Alive Maternal Grandfather Granddad Alive Maternal Grandmother Mother Yashira Alive Paternal Aunt Ameena and Ángela Paternal Grandfather Papa Paternal Grandmother Grandma Paternal Uncle Chucho Social History Tobacco Use Types Packs/Day Years Used Date Smoking Tobacco: Never Passive Smoke Exposure: Never Smokeless Tobacco: Never Tobacco Cessation:Counseling Given: Yes Alcohol Use Standard Drinks/Week Comments Not Currently 0 (1 standard drink = 0.6 oz pur e alcohol) [facility] Utilities Answer Date Recorded In the past 12 months has e [employer], gas, oil, or water [employer] threatened to shut off services in your home? No 11/29/2024 Humiliation, Afraid, Rape, and Kick questionnair e Answer Date Recorded Within the last year, have y ou been afraid of your partner or ex-partner? No 11/25/2022 Within the last year, have y ou been humiliated or emotionally abused in other ways by your partner or ex-partner? No Within the last year, have y ou been kicked, hit, slapped, or otherwise physically hurt by your partner or ex-partner? No 11/25/2022 Within the last year, have y ou been raped or forced to have any kind of sexual activity by your partner or ex-partner? No 11/25/2022 Social Connection and Isolat ion Panel [NHANES] Answer Date Recorded In a typical week, how many times do you talk on the phone with family, friends, or neighbors? More than three times a week 11/25/2022 How often do you get togethe r with friends or relatives? Once a week 11/25/2022 How often do you attend chur ch or yazdanism services? Never 11/25/2022 Do you belong to any clubs o r organizations such as yazdanism groups, unions, fraternal or athletic groups, or school groups? No 11/25/2022 How often do you attend meet ings of the clubs or organizations you belong to? Never 11/25/2022 Are you , , di vorced, , never , or living with a partner? 11/25/2022 AUDIT-C Answer Date Recorded Q1: How often do you have a drink containing alc ohol? Never 11/29/2024 Average Number of Drinks Not on file 025 Frequency of Binge Drinking Not on file 11/04 Overall Financial Resource Strain (CARDIA) Answe r Date Recorded How hard is it for you to pa y for the very basics like food, housing, medical care, and heating? Not hard at all 11/29/2024 [facility] [place] [facility] - Occupational Stress Questionnaire Answer Date Recorded Do you feel stress - tense, restless, nervous, or anxious, or unable to sleep at night because your mind is troubled all the time - these days? Only a little 11/29/2024 Exercise Vital Sign Answer Date Recorde d On average, how many days pe r week do you engage in moderate to strenuous exercise (like a brisk walk)? 5 days 11/29/2024 On average, how many minutes do you engage in exercise at this level? 30 min 11/29/2024 Hunger Vital Sign Answer Date Recorded Within the past 12 months, y ou worried that your food would run out before you got the money to buy more. Never true 11/29/19 25 Within the past 12 months, t he food you bought just didn't last and you didn't have money to get more. Never true 11/29/2024 PRAPARE - Transportation Answer Date Re corded In the past 12 months, has l ack of transportation kept you from medical appointments or from getting medications? No 11/04 In the past 12 months, has l ack of transportation kept you from meetings, work, or from getting things needed for daily living? No 11/29/2024 Housing Stability Vital Sign Answer Vince e Recorded In the last 12 months, was t here a time when you were not able to pay the mortgage or rent on time? No 11/15/2023 In the last 12 months, how many places have you lived? 1 11/15/2023 In the last 12 months, was t here a time when you did not have a steady place to sleep or slept in a mcfp (including now)? No 11/15/2023 Housing Stability Vital Sign Answer Vince e Recorded In the last 12 months, was t here a time when you were not able to pay the mortgage or rent on time? No 11/29/2024 In the past 12 months, how m any times have you moved where you were living? 0 11/29/2024 At any time in the past 12 m [facility], were you homeless or living in a mcfp (including now)? No 11/29/2024 Depression Answer Date Recorded PHQ-2 Total Score 0 11/30/2024 HITS Answer Date Recorded Over the last 12 months how often did your partner physically hurt you? Never 11/29/2024 Over the last 12 months how often did your partner insult you or talk down to you? Never 11/29/2024 Over the last 12 months how often did your partner threaten you with physical harm? Never 11/29/2024 Over the last 12 months how often did your partner scream or curse at you? Never 11/29/2024 Social Network Answer Date Recorded How would you rate your soci al network (family, work, friends)? Good participation with social networks 11/29/2024 Comments No Sex and Gender Information Value Date Recorded Sex Assigned at Not on file Legal Sex Female 3:37 PM EDT Gender Identity Not on file Sexual Orientation Not on file Last Filed Vital Signs Vital Sign Reading Time Taken Comments Blood Pressure 124/80 11/30/2024 9:35 AM EST Pulse 91 11/30/2024 9:35 AM EST Temperature - - Respiratory Rate 17 11/30/2024 9:35 AM EST Oxygen Saturation 98% 11/30/2024 9:35 AM EST Inhaled Oxygen Concentration - - Weight 117.3 kg (258 lb 9.6 oz) 11/30/2024 9:35 AM EST Height 162.5 cm (5' 3.98 ) 11/30/2024 9:35 AM EST Body Mass Index 44.42 11/30/2024 9:35 AM EST Plan of Treatment Health Maintenance Due Date Last Done Comments COVID-19 Vaccine ( season) 2025 10/03/2021, 01/25/2021, 01/04/2021 Postponed from 07/04/2024 (Patient Declined) Adult Wellness Exam 11/30/2025 11/30/2024, 11/17/2023, 01/03/2023, Additional history exists Vitamin B12 11/30/2025 11/30/2024 Pap Smear 01/03/2026 01/03/2023 DTaP/Tdap/Td Vaccines (2 - Td or Tdap) 11/29/2032 11/29/2022 Zoster Vaccine (1 of 2) 2036 HPV Vaccine Aged Out No longer eligi ble based on patient's age to complete this topic Hepatitis A Vaccine Aged Out No longe r eligible based on patient's age to complete this topic Meningococcal B Vaccine Aged Out No l onger eligible based on patient's age to complete this topic Meningococcal Conjugate Vaccine Aged Out No longer eligible based on patient's age to complete this topic Pneumococcal Vaccine: Pediatrics and At Risk Patients Aged Out No longer eligible based on patient's age to complete this topic Procedures Procedure Name Priority Date/Time Associated Diagnosis Comments VITAMIN B12 Routine 11/30/2024 10:00 AM EST Annual physical exam Insulin resistance IGP, APTIMA HPV RFX 16,18,45 Routine 01/03/2023 11:59 AM EST Screening for cervical cancer from Last 3 Months or Most Recently Relevant to Health Maintenance Results * Vitamin B12 (11/30/2024 10:00 AM EST) Vitamin B-12 609 232 - 1,245 pg/mL [facility] 1 Blood 11/30/2024 10:0 0 AM EST 11/30/2024 Narrative [facility] - 12/01/2024 7:38 AM EST Performed at: - [facility] [id number] Storekeeper Helper: Annette Montesinos MD, Phone: [phone] us Marek Siddiqui MD LAB BLOOD ORDERABLES Final Result [facility] * (ABNORMAL) IGP, Aptima HPV, rfx 16/18,45 Endocervical Cervix (01/03/2023 11:59 AM EST) Interpretation EPCA,ASUSB( A) [facility] 1 Comment: EPITHELIAL CELL ABNORMALITY. ATYPICAL SQUAMOUS CELLS OF UNDETERMINED SIGNIFICANCE (ASC-US). Category ASC-US(A) [facility] 1 Comment:Atypical Squamous Ce lls of Undetermined Significance Adequacy ENDO [facility] 1 Comment: Satisfactory for evaluation. Endocervical and/or squamous metaplastic cells (endocervical component) are present. Clinician provided ICD10 Comment [facility] 2 Comment:Z12.4 Performed By: Comment [facility] 3 Comment:Jessica Mobley ytotechnologist (ASC) Electronically Signed By: Comment [facility] 1 Comment:Krzysztof Mcneal MD, Pathologist Pathologist provided ICD10 Comment [facility] 1 Comment:R87.610 Sales Account Associate Note Comment [facility] 2 Comment: The Pap smear is a screening test designed to aid in the detection of premalignant and malignant conditions of the uterine cervix. It is not a diagnostic procedure and should not be used as the sole means of detecting cervical cancer. Both false-positive and false-negative reports do occur. Test Methodology Comment [facility] 2 Comment: This liquid based ThinPrep(R) pap test was screened with the use of an image guided system. HPV Aptima Negative Negative [facility] 3 Comment: This nucleic acid amplification test detects fourteen high-risk HPV types (16,18,31,33,35,39,45,51,52,56,58,59,66,68) without differentiation. HPV Genotype Reflex Comment [facility] 1 Comment:Criteria not met, HP V Genotype not performed. Endocervical CERVIX UTERI STRUCTURE / Unknown 01/03/2023 11:59 AM EST 01/03/2023 Narrative [facility] - 01/10/2023 10:36 AM EST Specimen Comment: [id number] Specimen Comment: No. of containers..01 ThinPrep Vial Performed at: 01 - [facility] [address] [place] [id number] Storekeeper Helper: Santiago Heredia MD, Phone: [phone] Performed at: 02 - [facility] [id number] Storekeeper Helper: Annette Montesinos MD, Phone: [phone] Performed at: 03 - [facility] [id number] Storekeeper Helper: Annette Montesinos MD, Phone: [phone] Everett Jones MD MICROBIOLOGY - GENERAL ORDERA BLES Final Result Performing Organization Address City/State/[facility] Co de Phone Number [facility] 3 from Last 3 Months or Most Recently Relevant to Health Maintenance [place] [address] [place] [address] [facility] PL[facility] Advance Directives For more information, please contact: [phone] Healthcare Agents on File Name Relationship Healthcare Agent [facility] p Communication Elvin Sujata Spouse [place] [phone] (Brock solano) Care Teams Patient Services Manager Relationship Specialty [place] [address] [place] [address] PCP - General Family Medicine 11/29/22
[2025-04-09 12:54] LABS: Basophils Percent Auto 0.4 % (0.2-2.0); Eosinophils Absolute Auto 0.1 10^3/uL (0.0-0.7); Eosinophils Percent Auto 0.9 % (0.9-7.0); Hematocrit 35.3 % (36.0-48.0); Hemoglobin 12.1 g/dL (12.0-16.0); Immature Granulocytes Abs Auto 0.03 10^3/uL (0.00-0.03); Immature Granulocytes Pct Auto 0.3 % (0.0-0.5); Lymphocytes Absolute Auto 1.3 10^3/uL (1.2-3.8); Lymphocytes Percent Auto 14.8 % (20.5-60.0); Mean Corpuscular HGB Conc 34.3 g/dL (29.9-35.2); Mean Corpuscular Hemoglobin 27.6 pg (26.7-34.0); Mean Corpuscular Volume 80.6 fL (81.0-99.0); Mean Platelet Volume 10.2 fL (9.5-13.5); Monocytes Absolute Auto 0.6 10^3/uL (0.3-0.8); Monocytes Percent Auto 6.9 % (1.7-12.0); Neutrophils Absolute Auto 6.9 10^3/uL (1.4-6.5); Neutrophils Percent Auto 76.7 % (43.0-75.0); Platelet Count 188 10^3/uL (150-450); Red Blood Count 4.38 10^6/uL (4.20-5.40); Red Cell Distribution Width 16.9 % (11.0-15.0)
[2025-04-09 13:13] LABS: Alanine Aminotransferase 25 U/L (14-59); Albumin Globulin Ratio 0.9; Albumin Level 3.2 g/dL (3.4-5.0); Alkaline Phosphatase 63 U/L (46-116); Anion Gap 15.7; Aspartate Amino Transferase 14 U/L (15-37); BUN Creatinine Ratio 13.8; Bilirubin Total 0.2 mg/dL (0.2-1.0); Calcium 9.2 mg/dL (8.5-10.1); Carbon Dioxide 25.2 mmol/L (21.0-32.0); Chloride 102 mmol/L (98-107); Estimated GFR (African America >60 (>=60 mL/min/1.73m^2); Estimated GFR (Non-African Ame >60 (>=60 mL/min/1.73m^2); Globulin 3.5 g/dL; Glucose 104 mg/dL (74-106); Potassium 3.9 mmol/L (3.5-5.1); Sodium 139 mmol/L (136-145); Total Protein 6.7 g/dL (6.4-8.2)
[2025-04-09 13:44] LABS: Bilirubin Urine NEGATIVE (NEGATIVE); Blood Urine LARGE (NEGATIVE); Clarity Urine SL CLOUDY (CLEAR); Color Urine LT. YELLOW (YELLOW); Glucose Urine UA NEGATIVE (NEGATIVE); Ketones Urine NEGATIVE (NEGATIVE); Leukocyte Esterase Urine NEGATIVE (NEGATIVE); Nitrite Urine NEGATIVE (NEGATIVE); Protein Urine NEGATIVE (NEG/TRACE); Urobilinogen Urine 0.2 EU/dL (0.2-1.0)
[2025-04-09 13:54] LABS: Bacteria Urine MODERATE #/HPF (NONE SEEN); Mucus Urine TRACE (NONE SEEN); RBC Urine 20-50 #/HPF (0-2); Squamous Epithelial Cell Urine FEW #/LPF (NONE/RARE); WBC Urine 0-2 #/HPF (NONE SEEN)
[2025-04-09 13:55] LABS: Cast Seen? NONE SEEN #/LPF (NONE SEEN); Crystals Seen? None Seen #/HPF (None Seen)
[2025-04-09 13:56] LABS: Urine Culture Indicated YES-FRMC
== END 2025-04-09 16:12 | disposition home or self-care (01) ==
PROVIDERS: Nurse Practitioner; Emergency Provider Emergency Medicine
DX: O20.0 Threatened abortion (principal); Z3A.14 14 weeks gestation of pregnancy
CPT/HCPCS: 36415; 76815; 80053; 81001; 85025; 86900; 86901; 87086; 99285

== ENCOUNTER 2025-04-14 01:53 | Emergency (ER) | payer OTHER, SELFPAY ==
[2025-04-14 01:56] VITALS: BP 134/62; PULSE 72; TEMP 36.6; O2SAT 98; BMI 43.6
--- NOTE | 2025-04-14 02:24 | ED.PREGNANC1 ---
HPI - General Chief complaint: Vaginal Bleeding Stated complaint: POSSBILE MISSCARRIAGE Time Seen by Provider: 04/14/25 02:04 Source: patient Mode of arrival: walk-in Limitations: no limitations History of Present Illness HPI Narrative: The patient is a 14 weeks with her first . Coming to the ER after she was evaluated here almost 5 days ago with an ultrasound for vaginal bleeding. Patient mentioned almost in the last few hours she had more bleeding and she felt a gush of blood coming almost within the last hour and she is worried that she had a miscarriage Patient originally is from [place] and she does not have [facility] doctor here yet The patient denies any significant abdominal pain and that the pain was mostly a cramping pain that got better after she had a gush of blood that she had a she also saw some blood clots as well. The patient did not have any dizziness or any shortness of breath Related Data Allergies Allergy/AdvReac Type Severity Reaction Status Date / Time No Known Drug Allergies Allergy Verified 04/14/25 02:02 Review of Systems ROS Status of ROS 10 or more systems reviewed and unremarkable except as noted in history and below PFSH PFSH Social History Little interest or pleasure in doing things: not at all Feeling down, depressed, or hopeless: not at all Exam Narrative Exam Narrative: Nurses notes and vital signs reviewed and patient is not hypoxic. General: Well-appearing and in no apparent distress. Skin: Warm, dry, no pallor noted. No rash. Head: Normocephalic, atraumatic. Neck: Supple, non-tender. Eye: Pupils are equal, round and EOMI. No scleral icterus. Ears, Nose, Mouth, and Throat: TM are clear, no nasal mucosal hypertrophy. Oral mucosa is moist, no posterior oropharynx erythema, uvula is mid-line Cardiovascular: Regular Rate and Rhythm without murmur, gallop or rub. Respiratory: No accessory muscle use or respiratory distress. Musculoskeletal: normal ROM, no calf or popliteal tenderness, no lower extremity edema/swelling GI: Abdomen is soft, non-distended. Normal bowel sounds. No masses appreciated. No tenderness to palpation. No rebound, guarding, or rigidity noted. Neurological: A&O x4. No cranial nerve dysfunction observed. No truncal ataxia. Moves all extremities. Sensation intact. Psychiatric: Cooperative and interactive. Normal mood and affect. Constitutional Vital Signs, click to edit/add: Last Vital Signs Temp 97.8 F 04/14/25 01:56 Pulse 72 04/14/25 01:56 Resp 18 04/14/25 01:56 BP 134/62 04/14/25 01:56 Pulse Ox 98 04/14/25 01:56 O2 Del Method Room Air 04/14/25 01:56 Course Vital Signs Vital signs: Vital Signs Temperature 97.8 F 04/14/25 01:56 Pulse Rate 72 04/14/25 01:56 Respiratory Rate 18 04/14/25 01:56 Blood Pressure 134/62 04/14/25 01:56 Pulse Oximetry 98 04/14/25 01:56 Oxygen Delivery Method Room Air 04/14/25 01:56 Temperature 97.8 F 04/14/25 01:56 Pulse Rate 72 04/14/25 01:56 Respiratory Rate 18 04/14/25 01:56 Blood Pressure 134/62 04/14/25 01:56 Pulse Oximetry 98 04/14/25 01:56 Oxygen Delivery Method Room Air 04/14/25 01:56 MDM - OB/Uterine Contractions MDM Narrative Medical decision making narrative: The patient main reason to come to the ER was to have an ultrasound to make sure if she is still or not The patient is a positive blood group type I did explain to the patient that right now she definitely needs an ultrasound to make sure that she still have any retained product. But I explained to the patient right now that we do not have an transportation refrigeration technician to do the ultrasound at the evening time, the patient will come back in few hours to do the ultrasound for further evaluation Meanwhile the patient will be monitoring her symptoms of bleeding in case of any bleeding that is significantly more than her regular menstruation bleeding the patient will come back to the ER Also the patient will come back in case of any dizziness or any shortness of breath The patient understands the plan adequately Discharge Plan Discharge Chief Complaint: Vaginal Bleeding Clinical Impression: Threatened miscarriage Patient Disposition: Home, Self-Care Time of Disposition Decision: 02:25 Condition: Good Print Language: Thai Instructions: Threatened Miscarriage (ED) Referrals: John Malone DO [Physician, [facility]] - As soon as possible Physician,Non-Staff, MD [Primary Care Provider] - 1 week Discharge Date/Time: 04/14/25 02:34
== END 2025-04-14 02:34 | disposition home or self-care (01) ==
PROVIDERS: Emergency Provider Emergency Medicine
DX: O20.0 Threatened abortion (principal); Z3A.14 14 weeks gestation of pregnancy
CPT/HCPCS: 99283